=== PATIENT | female | born 1960 | race Caucasian/White ===

== ENCOUNTER 2020-03-30 22:48 | Inpatient (IN) | payer OTHER ==
[~2020-03-30] VITALS: Ht 160 cm; Wt 126.6 kg
[2020-03-30] MEDS ORDERED: ACETAMINOPHEN 325 MG TAB PO ONE ×2 (23:00→23:15)
[2020-03-30] MEDS ORDERED: ACETAMINOPHEN 325 MG TAB ONE (23:10)
[2020-03-31] VITALS (8 sets, daily range): BP systolic 114–143; BP diastolic 65–83
[2020-03-31] MEDS ORDERED: KETOROLAC TROMETHAMINE 30 MG/ML VIAL IM STA (00:11)
[2020-03-31] MEDS ORDERED: KETOROLAC TROMETHAMINE 30 MG/ML VIAL ONE (00:19)
[2020-03-31 02:58] LABS: BASOPHILS # (AUTO) 0.1 (0.0-0.1); BASOPHILS % 0.4 % (0.0-1.0); HEMATOCRIT 40.3 % (34.2-44.1); HEMOGLOBIN 13.3 g/dL (12.0-16.0); LYMPHOCYTES # (AUTO) 1.1 (1.0-3.2); LYMPHOCYTES % 8.9 % (18.0-39.1); MONOCYTES # (AUTO) 0.8 (0.2-0.8); MONOCYTES % 5.9 % (4.4-11.3); NEUTROPHILS # (AUTO) 10.8 (2.1-6.9); NEUTROPHILS % 84.3 % (38.7-80.0); PLATELET COUNT 293 x10e3/uL (140-360); RED BLOOD COUNT 4.43 x10e6/uL (3.6-5.1); RED CELL DISTRIBUTION WIDTH 13.3 % (11.7-14.4)
[2020-03-31 03:16] LABS: ALANINE AMINOTRANSFERASE 42 IU/L (0-55); ALBUMIN 4.6 g/dL (3.5-5.0); ALBUMIN/GLOBULIN RATIO 1.9 (0.8-2.0); ALKALINE PHOSPHATASE 70 IU/L (40-150); ANION GAP 15.7 mmol/L (8-16); BLOOD UREA NITROGEN 14 mg/dL (7-26); BUN/CREATININE RATIO 22 (6-25); CARBON DIOXIDE 23 mmol/L (22-29); CHLORIDE 103 mmol/L (98-107); CREATININE, SERUM 0.63 mg/dL (0.57-1.11); EST GLOMERULAR FILTRATION RATE > 60 ML/MIN (60-); GLUCOSE 131 mg/dL (74-118); POTASSIUM 3.7 mmol/L (3.5-5.1); SODIUM 138 mmol/L (136-145)
[2020-03-31] MEDS ORDERED: IOPAMIDOL 370 MG/ML 200 ML INFUS..BTL INJ ONE (03:53)
[2020-03-31] MEDS ORDERED: SODIUM CHLORIDE 0.9% 50ML 50 ML ONE (03:53)
[2020-03-31] MEDS ORDERED: MORPHINE SULFATE 2 MG/ML SYR 1ML IV PRN (14:30)
[2020-03-31] MEDS ORDERED: TRAMADOL HCL 50 MG TAB PO PRN (14:30)
[2020-03-31] MEDS: HYDROCODONE/APAP 7.5MG-325MG 1 EA TAB PO PRN ×2 (14:40→21:21)
[2020-03-31] MEDS ORDERED: POLYETHYLENE GLYCOL 3350 17 GM PACK PO PRN (20:00)
[2020-03-31] MEDS ORDERED: ACETAMINOPHEN 325 MG TAB PO PRN (20:00)
[2020-03-31] MEDS ORDERED: TEMAZEPAM 7.5 MG CAP PO PRN (20:00)
[2020-03-31] MEDS ORDERED: METOPROLOL TARTRATE INJ 1 MG/ML VIAL IV PRN (20:00)
[2020-03-31] MEDS ORDERED: ONDANSETRON HCL INJ 2MG/ML 2ML 2 MG/ML VIAL IV PRN (20:00)
[2020-04-01] VITALS (7 sets, daily range): BP systolic 120–141; BP diastolic 67–94
[2020-04-01 05:20] LABS: BASOPHILS % 0.4 % (0.0-1.0); EOSINOPHILS # (AUTO) 0.1 (0.0-0.4); EOSINOPHILS % 1.1 % (0.0-6.0); HEMOGLOBIN 12.9 g/dL (12.0-16.0); LYMPHOCYTES # (AUTO) 2.2 (1.0-3.2); LYMPHOCYTES % 30.5 % (18.0-39.1); MEAN CORPUSCULAR HEMOGLOBIN 29.7 pg (28-32); MEAN CORPUSCULAR HGB CONC 32.3 g/dL (31-35); MONOCYTES # (AUTO) 0.7 (0.2-0.8); MONOCYTES % 10.1 % (4.4-11.3); NEUTROPHILS # (AUTO) 4.2 (2.1-6.9); NEUTROPHILS % 57.5 % (38.7-80.0); PLATELET COUNT 267 x10e3/uL (140-360); RED BLOOD COUNT 4.35 x10e6/uL (3.6-5.1); RED CELL DISTRIBUTION WIDTH 13.9 % (11.7-14.4)
[2020-04-01 05:38] LABS: ALANINE AMINOTRANSFERASE 35 IU/L (0-55); ALBUMIN 4.4 g/dL (3.5-5.0); ALBUMIN/GLOBULIN RATIO 1.7 (0.8-2.0); ALKALINE PHOSPHATASE 74 IU/L (40-150); ANION GAP 15.5 mmol/L (8-16); BLOOD UREA NITROGEN 16 mg/dL (7-26); BUN/CREATININE RATIO 27 (6-25); CALCIUM 8.7 mg/dL (8.4-10.2); CARBON DIOXIDE 25 mmol/L (22-29); CHLORIDE 104 mmol/L (98-107); CHOL/HDL RATIO 4.8 (3.0-3.6); CHOLESTEROL 228 MD/DL (0-199); EST GLOMERULAR FILTRATION RATE > 60 ML/MIN (60-); GLUCOSE 106 mg/dL (74-118); HDL CHOLESTEROL 48 MG/DL (40-60); LDL CHOLESTEROL 140 MG/DL (60-130); PHOSPHORUS 3.3 MG/DL (2.3-4.7); POTASSIUM 3.5 mmol/L (3.5-5.1); SODIUM 141 mmol/L (136-145); TRIGLYCERIDES 198 MG/DL (0-149)
[2020-04-01 06:00] LABS: THYROID STIMULATING HORMONE 3.698 uIU/mL (0.350-4.940)
[2020-04-01] MEDS: DOCUSATE SODIUM 100 MG CAP PO SCH ×2 (09:00→19:17)
[2020-04-01] MEDS: FAMOTIDINE 20 MG/2 ML VIAL IV SCH ×2 (09:00→19:17)
[2020-04-01] MEDS: ATORVASTATIN 40 MG TAB PO SCH (20:46)
[2020-04-02] VITALS (8 sets, daily range): BP systolic 107–135; BP diastolic 75–88
[2020-04-02] MEDS: FAMOTIDINE 20 MG/2 ML VIAL IV SCH ×2 (09:00→16:56)
[2020-04-02] MEDS: DOCUSATE SODIUM 100 MG CAP PO SCH ×2 (09:00→16:56)
[2020-04-02] MEDS: HYDROCODONE/APAP 7.5MG-325MG 1 EA TAB PO PRN (11:44)
[2020-04-02 15:10] LABS: BILIRUBIN,URINE SMALL (NEGATIVE); CLARITY,URINE SL CLOUDY (CLEAR); COLOR,URINE YELLOW (YELLOW); KETONES,URINE TRACE (NEGATIVE); LEUKOCYTE ESTERASE ,URINE NEGATIVE (NEGATIVE); NITRITE,URINE NEGATIVE (NEGATIVE); PROTEIN,URINE DIPSTICK TRACE (NEGATIVE); URINE UROBILINOGEN 0.2 mg/dL (0.2 - 1)
[2020-04-02 15:11] LABS: AMORPHOUS SEDIMENT,URINE MODERATE (FEW); BACTERIA,URINE MANY /HPF; EPITHELIAL CELLS,URINE FEW /LPF
[2020-04-02] MEDS: ATORVASTATIN 40 MG TAB PO SCH (21:28)
[2020-04-02] MEDS: BACLOFEN 10 MG TAB PO PRN (22:55)
[2020-04-03] VITALS (7 sets, daily range): BP systolic 131–151; BP diastolic 73–91
[2020-04-03] MEDS: HYDROCODONE/APAP 7.5MG-325MG 1 EA TAB PO PRN (04:53)
[2020-04-03 05:58] LABS: ALANINE AMINOTRANSFERASE 42 IU/L (0-55); ALBUMIN 4.4 g/dL (3.5-5.0); ALBUMIN/GLOBULIN RATIO 1.6 (0.8-2.0); ALKALINE PHOSPHATASE 75 IU/L (40-150); ANION GAP 14.5 mmol/L (8-16); BASOPHILS % 0.5 % (0.0-1.0); BLOOD UREA NITROGEN 21 mg/dL (7-26); BUN/CREATININE RATIO 34 (6-25); CALCIUM 8.6 mg/dL (8.4-10.2); CARBON DIOXIDE 27 mmol/L (22-29); CHLORIDE 104 mmol/L (98-107); CREATININE, SERUM 0.62 mg/dL (0.57-1.11); EOSINOPHILS # (AUTO) 0.1 (0.0-0.4); EOSINOPHILS % 1.8 % (0.0-6.0); EST GLOMERULAR FILTRATION RATE > 60 ML/MIN (60-); GLUCOSE 112 mg/dL (74-118); HEMATOCRIT 40.9 % (34.2-44.1); HEMOGLOBIN 13.3 g/dL (12.0-16.0); LYMPHOCYTES # (AUTO) 1.9 (1.0-3.2); LYMPHOCYTES % 25.1 % (18.0-39.1); MEAN CORPUSCULAR HEMOGLOBIN 30.5 pg (28-32); MEAN CORPUSCULAR HGB CONC 32.5 g/dL (31-35); MEAN CORPUSCULAR VOLUME 93.8 fL (81-99); MONOCYTES # (AUTO) 0.7 (0.2-0.8); MONOCYTES % 8.7 % (4.4-11.3); NEUTROPHILS # (AUTO) 4.8 (2.1-6.9); NEUTROPHILS % 63.6 % (38.7-80.0); PLATELET COUNT 286 x10e3/uL (140-360); POTASSIUM 3.5 mmol/L (3.5-5.1); RED BLOOD COUNT 4.36 x10e6/uL (3.6-5.1); RED CELL DISTRIBUTION WIDTH 13.5 % (11.7-14.4); SODIUM 142 mmol/L (136-145)
[2020-04-03] MEDS ORDERED: ONDANSETRON HCL 4 MG ORAL DISINTEGRATING TAB PO PRN (07:45)
[2020-04-03] MEDS: DOCUSATE SODIUM 100 MG CAP PO SCH ×2 (08:43→16:10)
[2020-04-03] MEDS: CHOLESTYRAMINE 4 GM PACKET PO PRN ×2 (12:23→17:37)
[2020-04-03] MEDS: FAMOTIDINE 20 MG TAB PO SCH (16:29)
[2020-04-03] MEDS: ATORVASTATIN 40 MG TAB PO SCH (20:11)
[2020-04-03] MEDS: BACLOFEN 10 MG TAB PO PRN (23:03)
[2020-04-04] VITALS: BP 133/96
[2020-04-04 04:00] VITALS: BP 126/57
[2020-04-04] MEDS: FAMOTIDINE 20 MG TAB PO SCH (07:30)
[2020-04-04 09:00] VITALS: BP 132/72
[2020-04-04] MEDS: DOCUSATE SODIUM 100 MG CAP PO SCH (09:00)
[2020-04-04] MEDS: HYDROCODONE/APAP 7.5MG-325MG 1 EA TAB PO PRN (09:20)
[2020-04-04 12:07] VITALS: BP 130/85
[2020-04-04] MEDS ORDERED: ULTRAM 50MG50 MG PO (12:32)
[2020-04-04] MEDS ORDERED: Hydrocodone/Apap 7.5MG-325MG PO (12:32)
[2020-04-04] MEDS ORDERED: MIRALAX17 GM PO (12:32)
[2020-04-04] MEDS ORDERED: COLACE100 MG PO (12:32)
[2020-04-04] MEDS ORDERED: ACETAMINOPHEN325 M1 PO (12:32)
[2020-04-04] MEDS ORDERED: CHOLESTYRAMINE L4 GM PO (12:32)
[2020-04-04] MEDS ORDERED: FAMOTIDINE20 MG PO (12:32)
[2020-04-04] MEDS ORDERED: Ondansetron Oral Disintegratin PO (12:32)
[2020-04-04] MEDS ORDERED: Atorvastatin PO (12:32)
[2020-04-04] MEDS ORDERED: Temazepam PO (12:32)
[2020-04-04] MEDS ORDERED: BACLOFEN10 MG PO (12:32)
[2020-04-04] MEDS ORDERED: POTASSIUM CHLORIDE 20 MEQ TAB CR PO ONE (13:30)
== END 2020-04-04 15:40 | DRG 563 ==
LOC: ER 22:53 → ERHOLD 03-31 03:09 → MED/SURG2 03-31 04:32 → OBSVTOIN 04-01 14:49
PROVIDERS: ADMIT Internal Medicine; ATTEND Internal Medicine
DX: S83.411A Sprain of medial collateral ligament of right knee, initial encounter (principal); Z68.42 Body mass index [BMI] 45.0-49.9, adult; F90.0 Attention-deficit hyperactivity disorder, predominantly inattentive type; G47.00 Insomnia, unspecified; N32.81 Overactive bladder; W01.0XXA Fall on same level from slipping, tripping and stumbling without subsequent striking against object, initial encounter; E66.01 Morbid (severe) obesity due to excess calories; E87.6 Hypokalemia; R00.1 Bradycardia, unspecified; Z11.59 Encounter for screening for other viral diseases
CPT/HCPCS: 36415; 73522; 80053; 80061; 81001; 82948; 83036; 83735; 84100; 84443; 85025; 97139; 99284; G0378; J1885; Q9967; U0002

== ENCOUNTER 2024-03-09 13:17 | Emergency (ER) | payer OTHER ==
[~2024-03-09] VITALS: Ht 160 cm; Wt 126.6 kg
[~2024-03-09 13:17] MED LIST: ACETAMINOPHEN325 M1 PO; Atorvastatin PO; BACLOFEN10 MG PO; CHOLESTYRAMINE L4 GM PO; COLACE100 MG PO; FAMOTIDINE20 MG PO; Hydrocodone/Apap 7.5MG-325MG PO; MIRALAX17 GM PO; Ondansetron Oral Disintegratin PO; Temazepam PO; ULTRAM 50MG50 MG PO
[2024-03-09 15:44] VITALS: PULSE 107; RESP 18; TEMP 97.8
[2024-03-09 16:36] VITALS: BP 141/76; PULSE 81; RESP 16; O2SAT 100
== END 2024-03-09 16:38 | disposition home or self-care (01) ==
LOC: ER 13:26
DX: I10 Essential (primary) hypertension (principal); F41.9 Anxiety disorder, unspecified; F32.A Depression, unspecified; G47.00 Insomnia, unspecified; F90.9 Attention-deficit hyperactivity disorder, unspecified type
CPT/HCPCS: 99283